=== PATIENT | male | born 1975 | race Caucasian/White ===

== ENCOUNTER 2018-03-30 16:08 | Emergency (ER) | payer OTHER ==
--- NOTE | 2018-03-30 16:32 | EDM.PDOC ---
ED HPI GENERAL MEDICAL PROBLEM - General Chief Complaint: Laceration Time Seen by Provider: 03/30/18 16:22 Source of Information: Reports: Patient History Limitations: Reports: No Limitations - History of Present Illness INITIAL COMMENTS - FREE TEXT/NARRATIVE: Patient presents with left elbow laceration that occurred at work when a trailer door slammed against it. This happened about 5-10 minutes before ER arrival. Patient states that he knows his last tetanus shot was in July this year. He denies recent fever, cough or any chronic medical conditions. Past Medical History Neurological History: Reports: Brain Injury ED ROS GENERAL - Review of Systems Review Of Systems: See Below Constitutional: Denies: Fever, Chills, Weakness HEENT: Reports: No Symptoms Respiratory: Reports: No Symptoms. Denies: Shortness of Breath Cardiovascular: Denies: Chest Pain, Syncope GI/Abdominal: Reports: No Symptoms Musculoskeletal: Denies: Neck Pain, Shoulder Pain, Back Pain, Hand Pain, Leg Pain Skin: Denies: Cyanosis, Jaundice, Mottled, Pallor, Diaphoresis Neurological: Denies: Confusion, Dizziness, Seizure, Syncope, Trouble Speaking, Difficulty Walking Psychiatric: Denies: Agitation, Anxiety, Confusion ED EXAM, SKIN/RASH Exam: See Below Exam Limited By: No Limitations General Appearance: Alert, WD/WN, No Apparent Distress Eye Exam: Bilateral Eye: EOMI, Normal Inspection, PERRL Ears: Normal External Exam, Hearing Grossly Normal Nose: Normal Inspection, No Blood Throat/Mouth: Normal Inspection, Normal Lips, Normal Voice, No Airway Compromise Head: Atraumatic, Normocephalic Neck: Normal Inspection, Full Range of Motion Respiratory/Chest: No Respiratory Distress, Lungs Clear, Normal Breath Sounds, No Accessory Muscle Use Cardiovascular: Regular Rate, Rhythm, No Murmur GI/Abdominal: No Distention Extremities: Normal Range of Motion, Normal Capillary Refill, Other (Left posterior elbow over the olecranon there is a 3 cm transverse laceration that is bleeding moderately. Distal CMS is intact as is full ROM.) Neurological: Alert, Oriented, Normal Cognition, No Motor/Sensory Deficits Psychiatric: Normal Affect, Normal Mood Skin: Warm, Dry, Normal Color, No Rash, Wound/Incision. No: Rash Location, Skin: Upper Extremity, Left ED SKIN PROCEDURES - Laceration/Wound Repair Left Posterior Elbow Lac/Wound length In cm: 3 Appearance: Subcutaneous, Clean Distal NVT: Neuro & Vascular Intact, No Tendon Injury Anesthetic Type: Local Local Anesthesia - Lidocaine (Xylocaine): 1% with EPI Local Anesthetic Volume: 4cc Skin Prep: Chlorhexidine (Hibiciens) (soak), Providone-Iodine (Betadine) (swab) Saline Irrigation (cc's): 150 Exploration/Debridement/Repair: Wound Explored, In a Bloodless Field, Explored to Base, Minimal Debridement Closed with: Sutures Suture Size: 4-0 # of Sutures: 6 Suture Type: Nylon, Interrupted, Simple Drain Placement: No Sterile Dressing Applied: Nurse Tetanus Status Addressed: Yes Complications: No Course - Re-Assessments/Exams Free Text/Narrative Re-Assessment/Exam: 03/30/18 17:30 Discussed findings and treatment plan with patient who agreed. Lac repair as above using sterile technique throughout. Patient tolerated the procedure well and was discharged to home in stable condition. Departure - Departure Time of Disposition: 17:25 Disposition: Home, Self-Care 01 Condition: Good Clinical Impression: Laceration of left elbow without complication Qualifiers: Encounter type: initial encounter Qualified Code(s): S51.012A - Laceration without foreign body of left elbow, initial encounter - Discharge Information Instructions: Sutured Wound Care Referrals: PCP,None [Primary Care Provider] - Additional Instructions: 1. Keep wound clean and dry except for showering. 2. Change dressings daily. 3. Watch for signs of infection and recheck with your PCP if any problems. 4. Follow up with your PCP in ten days for suture removal.
[2018-03-30] MEDS ORDERED: Lidocaine 2% with EPINEPHrine 1:200,000 20 ML SDV ONE (16:56)
[2018-03-30] MEDS ORDERED: Lidocaine 2% with EPINEPHrine 1:200,000 20 ML SDV SUBCUT ONE (17:00)
[2018-03-30] MEDS ORDERED: Bacitracin/Neomycin/Polymyxin B Oint 0.9 GM U/D Packet TOP ONE (17:42)
== END 2018-03-30 17:30 | disposition home or self-care (01) ==
LOC: KA.ED 16:08
DX: S51.012A Laceration without foreign body of left elbow, initial encounter (principal); Y99.0 Civilian activity done for income or pay; W23.0XXA Caught, crushed, jammed, or pinched between moving objects, initial encounter
CPT/HCPCS: 12002; 99283

== ENCOUNTER 2019-03-11 15:00 | Emergency (ER) | payer SELFPAY ==
[2019-03-11] MEDS ORDERED: diphenhydrAMINE 25 MG Cap PO ONE (15:50)
[2019-03-11] MEDS ORDERED: Famotidine 20 MG Tab PO ONE (15:50)
[2019-03-11] MEDS ORDERED: Dexamethasone 4 MG/ML SDV IM ONE (15:50)
[2019-03-11] MEDS ORDERED: cefTRIAXone 1 GM Vial IM ONE (15:50)
[2019-03-11] MEDS ORDERED: Lidocaine 1% 20 ML MDV ONE (16:11)
--- NOTE | 2019-03-11 16:13 | EDM.PDOC ---
ED HPI GENERAL MEDICAL PROBLEM - General Chief Complaint: Skin Complaint Stated Complaint: RIGHT HAND REDNESS/SWELLING Time Seen by Provider: 03/11/19 15:49 Source of Information: Reports: Patient History Limitations: Reports: No Limitations - History of Present Illness INITIAL COMMENTS - FREE TEXT/NARRATIVE: Patient's a 43-year-old gentleman who presents to emergency department this afternoon with a complaint of right hand swelling, redness and pain. Patient states that he woke this morning he noticed some redness and itching and as the day progressed the hand began to swell. Patient then noticed that redness was going from his hand up into his forearm and into his upper arm. Rates he works at local [employer], but does not think he got bit by something. Patient denies any kind of injury, laceration, or rash anywhere else on his body. Patient denies shortness of breath, chest pain, fever, nausea, vomiting, ever having an anaphylactic reaction, or history of similar symptoms in the past. Onset: Today Duration: Hour(s): Location: Reports: Upper Extremity, Right Quality: Reports: Burning Severity: Mild Improves with: Reports: None Worsens with: Reports: None Context: Denies: Trauma Associated Symptoms: Reports: No Other Symptoms. Denies: Fever/Chills - Related Data Allergies Allergy/AdvReac Type Severity Reaction Status Date / Time No Known Drug Allergies Allergy Other Verified 03/30/18 16:38 Home Meds: Home Meds Cephalexin [Keflex] 500 mg PO TID #21 capsule 03/11/19 [Rx] predniSONE [Prednisone] 40 mg PO DAILY #6 tablet 03/11/19 [Rx] Past Medical History Neurological History: Reports: Brain Injury - Infectious Disease History Infectious Disease History: Reports: Chicken Pox Social & Family History - Family History Family Medical History: Noncontributory - Caffeine Use Caffeine Use: Reports: Coffee, Soda ED ROS GENERAL - Review of Systems Review Of Systems: ROS reveals no pertinent complaints other than HPI. Constitutional: Reports: No Symptoms HEENT: Reports: No Symptoms Respiratory: Reports: No Symptoms Cardiovascular: Reports: No Symptoms Endocrine: Reports: No Symptoms GI/Abdominal: Reports: No Symptoms : Reports: No Symptoms Musculoskeletal: Reports: Hand Pain (Right) Skin: Reports: Pruritis, Rash, Erythema (Right hand and forearm) Neurological: Reports: No Symptoms Psychiatric: Reports: No Symptoms Hematologic/Lymphatic: Reports: No Symptoms Immunologic: Reports: No Symptoms ED EXAM, SKIN/RASH Exam: See Below Exam Limited By: No Limitations General Appearance: Alert, WD/WN, No Apparent Distress Throat/Mouth: Normal Inspection, Normal Oropharynx, No Airway Compromise Head: Atraumatic, Normocephalic Neck: Normal Inspection. No: Lymphadenopathy (L), Lymphadenopathy (R) Respiratory/Chest: No Respiratory Distress, Lungs Clear, Normal Breath Sounds, No Accessory Muscle Use, Chest Non-Tender Cardiovascular: Regular Rate, Rhythm, No Murmur Extremities: Arm Pain (Right extremity hand extending to mid forearm erythema, tenderness, mild edema.) Neurological: Alert, Oriented, Normal Cognition Psychiatric: Normal Affect, Normal Mood Skin: Warm, Dry, Intact, Erythema (Right hand with streaking of right forearm to mid upper arm) Location, Skin: Upper Extremity, Right Characteristics: Erythematous Associated features: Warmth, Tenderness, Swelling Lymphatic: Adenopathy (Right axilla, small, pea-sized lymphadenopathy) Course - Orders/Labs/Meds Meds: Medications Discontinued Medications Generic Name Dose Route Start Last Admin Trade Name Ronenq PRN Reason Stop Dose Admin Ceftriaxone Sodium 1 gm 03/11/19 15:50 Rocephin IM 03/11/19 15:51 ONETIME ONE Dexamethasone 8 mg 03/11/19 15:50 Dexamethasone IM 03/11/19 15:51 ONETIME ONE Diphenhydramine HCl 25 mg 03/11/19 15:50 Benadryl PO 03/11/19 15:51 ONETIME ONE Famotidine 20 mg 03/11/19 15:50 Pepcid PO 03/11/19 15:51 ONETIME ONE - Re-Assessments/Exams Free Text/Narrative Re-Assessment/Exam: 03/11/19 17:08 Patient afebrile, vital signs stable, appears nontoxic and states he feels better. The upper extremity biceps region erythema has partially resolved and there has been no progression of the rest of the lower extremity. Patient given 1 g Rocephin in ER. Because there is no obvious skin insult, both cellulitis and allergic reaction are considered. Patient will be rechecked within 24 hours either at the ER or at [facility]. Patient will return to ER if symptoms worsen. Patient assures me that this will occur. 03/11/19 17:11 Departure - Departure Time of Disposition: 17:10 Disposition: Home, Self-Care 01 Condition: Good Clinical Impression: Urticaria - Discharge Information Instructions: Hives, [id number], Cellulitis, Adult, [id number] Referrals: Jovani Rodriguez PA-C [Primary Care Provider] - Forms: ED Department Discharge Additional Instructions: Follow-up at [facility] tomorrow. If unable, then return to the emergency department for recheck. If swelling or rash worsens return to the emergency department. Take medication as directed. - Assessment/Plan Assessment:: Cellulitis Plan: Recheck in 24 hours
[2019-03-11] MEDS ORDERED: Lidocaine 1% 20 ML MDV INJECT ONE (16:32)
== END 2019-03-11 17:20 | disposition home or self-care (01) ==
LOC: KA.ED 15:00
DX: L50.9 Urticaria, unspecified (principal)
CPT/HCPCS: 96372; 99282; A9270; J0696; J1100; J2001

== ENCOUNTER 2021-06-20 10:25 | Emergency (ER) | payer SELFPAY ==
[2021-06-20] MEDS ORDERED: Acetaminophen 500 MG Tab PO ONE (11:07)
--- NOTE | 2021-06-20 11:07 | EDM.PDOC ---
ED HPI GENERAL MEDICAL PROBLEM - General Chief Complaint: General Stated Complaint: CHEST CONGESTION Time Seen by Provider: 06/20/21 10:35 Source of Information: Reports: Patient History Limitations: Reports: No Limitations - History of Present Illness INITIAL COMMENTS - FREE TEXT/NARRATIVE: 45 YO WM PRESENTS TO ER COMPLAINING OF COUGH/CONGESTION AND SORE THROAT X 3 DAYS. PT REPORTS ASSOCIATED FEVER/CHILLS, AND MILD SHORTNESS OF BREATH. PT DENIES KNOWN COVID EXPOSURE. PT DENIES COVID VACCINE. PT DENIES ANY UNDERLYING MEDICAL PROBLEMS. PT STATES THE ONLY MEDICATIONS HE HAS TRIED TAKING IS COUGH DROPS. PT DENIES CHEST PAIN, NO N/V/D. PT REPORTS DECREASED APPETITE BUT HAS BEEN EATING AND DRINKING DURING ILLNESS. Onset Date: 06/17/21 Duration: Day(s): (3) Location: Reports: Generalized Quality: Reports: Ache Severity: Mild Improves with: Reports: Rest Worsens with: Reports: None Associated Symptoms: Reports: Cough, Fever/Chills, Malaise, Shortness of Breath Treatments [employer]: Reports: Aspirin Left Chest Pain Score (Numeric/FACES): 4 - Related Data Allergies Allergy/AdvReac Type Severity Reaction Status Date / Time No Known Drug Allergies Allergy Other Verified 06/20/21 10:45 Home Meds: Home Meds . [No Known Home Meds] 06/20/21 [History] Past Medical History HEENT History: Reports: Impaired Vision Neurological History: Reports: Brain Injury - Infectious Disease History Infectious Disease History: Reports: Chicken Pox Social & Family History - Family History Family Medical History: No Pertinent Family History - Caffeine Use Caffeine Use: Reports: Coffee, Soda ED ROS GENERAL - Review of Systems Review Of Systems: See Below Constitutional: Reports: Fever, Chills, Malaise HEENT: Reports: Rhinitis Respiratory: Reports: Shortness of Breath, Cough Cardiovascular: Reports: No Symptoms Endocrine: Reports: No Symptoms GI/Abdominal: Reports: No Symptoms : Reports: No Symptoms Musculoskeletal: Reports: No Symptoms Skin: Reports: No Symptoms Neurological: Reports: No Symptoms Psychiatric: Reports: No Symptoms Hematologic/Lymphatic: Reports: No Symptoms Immunologic: Reports: No Symptoms ED EXAM, GENERAL - Physical Exam Exam: See Below Exam Limited By: No Limitations General Appearance: Alert, WD/WN, No Apparent Distress Ears: Normal External Exam, Normal Canal, Hearing Grossly Normal, Normal TMs Nose: Clear Rhinorrhea Throat/Mouth: Normal Inspection, Normal Lips, Normal Teeth, Normal Gums, Normal Oropharynx, Normal Voice, No Airway Compromise Head: Atraumatic, Normocephalic Neck: Normal Inspection, Supple, Non-Tender, Full Range of Motion Respiratory/Chest: No Respiratory Distress, Lungs Clear, Normal Breath Sounds, No Accessory Muscle Use, Chest Non-Tender Cardiovascular: Normal Peripheral Pulses, Regular Rate, Rhythm, No Edema, No Gallop, No JVD, No Murmur, No Rub GI/Abdominal: Normal Bowel Sounds, Soft, Non-Tender, No Organomegaly, No Distention, No Abnormal Bruit, No Mass Back Exam: Normal Inspection, Full Range of Motion, NT Extremities: Normal Inspection, Normal Range of Motion, Non-Tender, Normal Capillary Refill, No Pedal Edema Neurological: Alert, Oriented, CN II-XII Intact, Normal Cognition, Normal Gait, No Motor/Sensory Deficits Psychiatric: Normal Affect, Normal Mood Skin Exam: Warm, Dry, Intact, Normal Color, No Rash Lymphatic: No Adenopathy Course - Vital Signs Last Recorded V/S: Last Vital Signs Temp 98.8 F 06/20/21 10:39 Pulse 93 06/20/21 10:39 Resp 22 H 06/20/21 10:39 BP 128/80 06/20/21 10:39 Pulse Ox 95 06/20/21 10:39 - Orders/Labs/Meds Labs: Laboratory Tests 06/20/21 Range/Units 10:52 SARS CoV-2 RNA Rapid CHINYERE Negative (NEGATIVE) Meds: Medications Discontinued Medications Generic Name Dose Route Start Last Admin Trade Name Freq PRN Reason Stop Dose Admin Acetaminophen 1,000 mg 06/20/21 11:07 06/20/21 11:37 Acetaminophen 500 Mg Tab PO 06/20/21 11:08 1,000 mg ONETIME ONE Administration - Radiology Interpretation Free Text/Narrative:: CXR- NAD Departure - Departure Time of Disposition: 11:52 Disposition: Home, Self-Care 01 Condition: Good Clinical Impression: Viral URI with cough - Discharge Information Instructions: Viral Respiratory Infection, [id number] Referrals: Isabel Alonzo MD [Primary Care Provider] - Forms: ED Department Discharge Additional Instructions: 1. DISCHARGE HOME 2. RECOMMEND TYLENOL 1000MG EVERY 6 HOURS FOR FEVER/BODY ACHES 3. MOTRIN 600MG EVERY 6 HOURS NEEDED FOR BODY ACHES/FEVER 4. ZINC 50MG DAILY 5. VITAMIN C 1000MG DAILY 6. VITAMIN D 50OO IU DAILY 7. ZYRTEC 10MG DAILY FOR COUGH/CONGESTION Sepsis Event Note (ED) - Evaluation Sepsis Screening Result: No Definite Risk - Focused Exam Vital Signs: Vital Signs Temp Pulse Resp BP Pulse Ox 06/20/21 10:39 98.8 F 93 22 H 128/80 95 - Assessment/Plan Assessment:: 1. VIRAL URI WITH NEGATIVE RAPID COVID TEST Plan: 1. DISCHARGE HOME 2. RECOMMEND TYLENOL 1000MG EVERY 6 HOURS FOR FEVER/BODY ACHES 3. MOTRIN 600MG EVERY 6 HOURS NEEDED FOR BODY ACHES/FEVER 4. ZINC 50MG DAILY 5. VITAMIN C 1000MG DAILY 6. VITAMIN D 50OO IU DAILY 7. ZYRTEC 10MG DAILY FOR COUGH/CONGESTION
--- NOTE | 2021-06-20 11:35 | CR ---
[id number] RAD/RAD Chest PA or AP 1V EXAM: RAD Chest PA or AP 1V INDICATION: SHORTNESS OF BREATH. COMPARISON: None. DISCUSSION/IMPRESSION: Cardiomediastinal silhouette is normal in size and contour. Lungs are clear. No pleural effusion or pneumothorax. Blayne Hurtado MD 06/20/21 1134 Thank you for allowing us to participate in the care of your patient.
== END 2021-06-20 12:15 | disposition home or self-care (01) ==
LOC: KA.ED 10:25
DX: J06.9 Acute upper respiratory infection, unspecified (principal); Z20.822 Contact with and (suspected) exposure to COVID-19
CPT/HCPCS: 71045; 99283; 99283-25; A9270-GY; U0002

== ENCOUNTER 2021-11-23 01:40 | Emergency (ER) | payer SELFPAY ==
[2021-11-23] MEDS ORDERED: Lidocaine 2% with EPINEPHrine 1:200,000 10 ML SDV INFILT ONE (02:02)
[2021-11-23] MEDS ORDERED: Lidocaine 2% with EPINEPHrine 1:200,000 10 ML SDV ONE (02:05)
== END 2021-11-23 02:30 | disposition home or self-care (01) ==
LOC: KA.ED 01:40
DX: S01.81XA Laceration without foreign body of other part of head, initial encounter (principal); Z28.310 Unvaccinated for COVID-19; W18.30XA Fall on same level, unspecified, initial encounter
CPT/HCPCS: 12001; 99283; 99283-25

== ENCOUNTER 2022-03-22 14:54 | Emergency (ER) | payer SELFPAY ==
[2022-03-22] MEDS ORDERED: Aspirin 81 MG Tab.Chew PO ONE (15:07)
[2022-03-22] MEDS ORDERED: Sodium Chloride 0.9% 10 ML Syringe FLUSH PRN (15:07)
[2022-03-22 15:30] LABS: ANION GAP 12.8 mmol/L (5-15); CHLORIDE,CL 105 mmol/L (98-107); SODIUM,NA 141 mmol/L (136-145)
[2022-03-22 15:32] LABS: ESTIMATED GFR 113 mL/min (>=60)
== END 2022-03-22 17:20 | disposition home or self-care (01) ==
LOC: KA.ED 14:54
DX: R07.89 Other chest pain (principal); R20.2 Paresthesia of skin; Z20.822 Contact with and (suspected) exposure to COVID-19
CPT/HCPCS: 36415; 71045; 80053; 83880; 84484; 85025; 93005; 93010; 99284; 99285; A9270-GY; U0002

== ENCOUNTER 2022-06-14 18:43 | Emergency (ER) | payer SELFPAY ==
[2022-06-14] MEDS ORDERED: Lidocaine 1% with EPINEPHrine 1:100,000 10 ML MDV INJECT ONE (19:25)
[2022-06-14] MEDS ORDERED: Lidocaine 1% with EPINEPHrine 1:100,000 10 ML MDV ONE (19:25)
== END 2022-06-14 20:46 | disposition home or self-care (01) ==
LOC: KA.ED 18:43
DX: S51.012A Laceration without foreign body of left elbow, initial encounter (principal); W00.0XXA Fall on same level due to ice and snow, initial encounter
CPT/HCPCS: 12002; 73080-LT; 99283; 99283-25

== ENCOUNTER 2023-12-10 23:57 | Emergency (ER) | payer SELFPAY | END 2023-12-11 00:20 | disposition home or self-care (01) | LOC: KA.ED 23:57 | DX: S01.01XA Laceration without foreign body of scalp, initial encounter (principal); W18.39XA Other fall on same level, initial encounter | CPT/HCPCS: 12001; 99283 ==